=== PATIENT | male | born 1955 | race Caucasian/White ===

== ENCOUNTER 2023-07-03 06:19 | Day surgery (SDC) | payer OTHER, SELFPAY ==
[2023-06-27 08:13] VITALS: BMI 28.6
[2023-06-27 09:01] LABS: Hematocrit 40.5 % (39.0-52.0); Hemoglobin 13.2 g/dL (13.0-18.0); Mean Corp Hgb Conc. 32.6 g/dL (33.0-37.0); Mean Corpuscular Hgb 28.8 pg (27.0-31.0); Mean Corpuscular Volume 88.4 fL (80.0-94.0); Mean Platelet Volume 9.9 fL (7.4-10.4); Platelet Count 242 10^3/uL (130-400); Red Blood Cell Count 4.58 10^6/uL (4.70-6.10); White Blood Cell Count 5.6 10^3/uL (4.8-10.8)
[2023-06-27 09:10] LABS: INR 0.96; PT 12.5 Sec (11.4-14.6)
[2023-06-27 09:11] LABS: APTT 25.3 Sec (23.4-35.0)
[2023-06-27 09:16] LABS: Blood Urea Nitrogen 16 mg/dl (9-20); Calcium 9.9 mg/dl (8.4-10.2); Carbon Dioxide 28 mmol/L (22-30); Chloride 103 mmol/L (98-107); Estimated Creatinine Clearance 100 ml/min; Glucose 104 mg/dl (70-99); Potassium 4.4 mmol/L (3.5-5.1); Sodium 140 mmol/L (135-145); eGFR > 60.00
[2023-07-03] VITALS (7 sets, daily range): BP systolic 113–149; BP diastolic 73–100; BMI 28.6
[2023-07-03 11:23] LABS: Glucose - Point of Care 105 mg/dl (70-99)
[2023-07-03] MEDS: NORMOSOL-R 1000 IV (11:45)
== END 2023-07-03 13:58 | disposition home or self-care (01) ==
LOC: SDS 06:19
PROVIDERS: ATTENDING PHYSICIAN Surgery; FAMILY PHYSICIAN Family Medicine
DX: C61 Malignant neoplasm of prostate (principal)
CPT/HCPCS: 55700; 36415; 76998; 80048; 82962; 85027; 85610; 85730; 88305; 88344; 93005

== ENCOUNTER 2023-07-03 15:32 | Emergency (ER) | payer OTHER, SELFPAY ==
[2023-07-03 15:34] VITALS: BP 111/82
[2023-07-03 16:08] LABS: % Basophils 0.4 % (0-2); % Eosinophils 1.7 % (0-6); % Immature Granulocytes 0.3 % (0-0.5); % Lymphocytes 11.4 % (20.5-51.1); % Monocytes 4.5 % (1.7-9.3); % Neutrophils 81.7 % (42.2-75.2); Absolute Basophils 0.1 10^3/uL (0-0.2); Absolute Eosinophils 0.2 10^3/uL (0-0.7); Absolute Lymphocytes 1.4 10^3/uL (1.2-3.4); Absolute Monocytes 0.6 10^3/uL (0.1-0.6); Absolute Neutrophils 10.1 10^3/uL (1.4-6.5); Hematocrit 39.5 % (39.0-52.0); Hemoglobin 12.7 g/dL (13.0-18.0); Mean Corp Hgb Conc. 32.2 g/dL (33.0-37.0); Mean Corpuscular Volume 90.2 fL (80.0-94.0); Mean Platelet Volume 9.6 fL (7.4-10.4); Nucleated Red Blood Cells % 0 % (-); Platelet Count 223 10^3/uL (130-400); Red Blood Cell Count 4.38 10^6/uL (4.70-6.10); Red Cell Dist. Width 14.9 % (11.5-14.5); White Blood Cell Count 12.3 10^3/uL (4.8-10.8)
[2023-07-03 16:21] LABS: ALT (SGPT) 16 U/L (0-50); AST (SGOT) 24 U/L (17-59); Albumin 4.3 g/dl (3.5-5.0); Alkaline Phosphatase 73 U/L (38-126); Blood Urea Nitrogen 13 mg/dl (9-20); Calcium 9.1 mg/dl (8.4-10.2); Carbon Dioxide 26 mmol/L (22-30); Chloride 105 mmol/L (98-107); Glucose 153 mg/dl (70-99); Potassium 4.2 mmol/L (3.5-5.1); Sodium 135 mmol/L (135-145); Total Bilirubin 0.5 mg/dl (0.2-1.3); eGFR > 60.00
[2023-07-03 16:32] LABS: Troponin I < 0.012 ng/ml
--- NOTE | 2023-07-03 16:59 | ED.GENMED ---
History of Present Illness
<Nazia Pavon PA-C - Last Filed: 07/03/23 18:36>
General
Chief Complaint: Fall
Source: patient
Exam Limitations: none
Time Seen by Provider: 07/03/23 16:29
Nursing documentation reviewed up to this point in time: agreed with
Travel History
Have you had any contact with someone who has COVID-19?: No
Do you have any symptoms of coronavirus? Fever > 100 degrees, chills, cough, shortness of breath, sore throat, loss of taste or smell, muscle aches, or headache?: No
History of Present Illness
History of Present Illness:
Patient is a 67-year-old male with history hypertension, hyperlipidemia, diabetes, TIA status post prostate biopsy earlier today presenting for evaluation of syncopal episode and head injury. Patient had biopsy of prostate earlier this morning by
Dr. Worthington. He reports a light anesthesia during the procedure. It was completed without complications and he returned home around 2 PM. He was relaxing on the couch around 3 PM when he started to feel slightly dizzy. He then stood up became
increasingly more lightheaded, lost consciousness and struck the back of his head on a corner of the wall. He is unsure exactly how long he was unconscious for, although he only believes was for a few seconds. His son did come up from the basement
immediately after his fall.
He came to emergency department for evaluation of dizziness and head injury. While in the waiting room and sitting in a wheelchair patient reports that he became very dizzy again but did not lose consciousness. He denies any associated chest pain,
shortness of breath, nausea, vomiting, visual changes prior during dizziness episodes. He denies any neck pain, back pain, confusion. He does report a small amount of blood in urine following prostate biopsy. He denies any fever, chills, dysuria.
He denies sustaining any other injuries in the fall.
Patient does take Plavix for prior TIA which she was instructed to stop from today through Monday following biopsy.
Past History
<Nazia Pavon PA-C - Last Filed: 07/03/23 18:36>
Past History
ED Past Medical History: HTN, Hypercholesterolemia and Other (Previous mini stroke)
ED Past Surgical History: Orthopedic and Other
Social History
Tobacco: Non-smoker
Alcohol: Occasional
Drug: None
Personal:
Living: with family
Employment: Employed (Teacher)
Family History
Family History: Diabetes; Negative CAD
Phy Exam
<Nazia Pavon PA-C - Last Filed: 07/03/23 18:36>
Physical Exam
Physical Exam:
General: Somewhat pale appearing, nontoxic appearing
Vitals: Vital signs stable, afebrile
HEENT: Hematoma on left posterior scalp without any laceration or obvious bony deformity; pupils equal round reactive to light bilaterally, extraocular muscles intact; protecting airway
Neck: appears supple, no cervical spine or midline spinal tenderness
CV: Regular rate and rhythm, heart sounds normal, no evidence of cyanosis
Resp: No evidence of respiratory distress, lungs clear bilaterally
Abd: Soft, nontender in all 4 quadrants non-distended
Extremities: No deformities, no evidence of cyanosis or edema; DP and radial pulses palpable and equal bilaterally
Neuro: alert and oriented x 3; speech normal; no focal motor deficits; strength 5 out of 5 in upper and lower extremities: Sensation fully intact; cranial nerves II through XII intact; normal finger to nose
Psych: Normal affect
Skin: Intact, no rashes
Course
<MATY Mcleod Last Filed: 07/03/23 18:36>
Orders/Labs/Results
Orders:
Orders
07/03/23 15:39
Electrocardiogram (*1) Urgent
Reason for Study: Syncope
CT Head W/o Iv Contrast Urgent
Comment:
Reason For Exam: fall , posterior head strike.
07/03/23 15:40
EKG- Treatment ONCE
07/03/23 15:51
Complete Blood Count/With Diff Urgent
Comprehensive Metabolic Panel Urgent
Troponin I Urgent
07/03/23 17:17
Orthostatic VS- Treatment ONCE
0.9% Sodium Chloride 1000 ml [Nss] 1,000 ml IV BOLUS
Acetaminophen [Tylenol] 650 mg PO NOW STA
Abnormal Lab Results
07/03/23
15:51
WBC 12.3 H 10^3/uL
(4.8-10.8)
RBC 4.38 L 10^6/uL
(4.70-6.10)
Hgb 12.7 L g/dL
(13.0-18.0)
MCHC 32.2 L g/dL
(33.0-37.0)
RDW 14.9 H %
(11.5-14.5)
Absolute Neuts (auto) 10.1 H 10^3/uL
(1.4-6.5)
Neutrophils % 81.7 H %
(42.2-75.2)
Lymphocytes % 11.4 L %
(20.5-51.1)
Glucose 153 H mg/dl
(70-99)
07/03/23 15:51
07/03/23 15:51
Vital Signs
Initial and Last Documented VS:
Initial Vital Signs
Temp Pulse Resp BP Pulse Ox
97.7 F 80 18 111/82 98
07/03/23 15:34 07/03/23 15:34 07/03/23 15:34 07/03/23 15:34 07/03/23 15:34
Last Documented Vital Signs
Temp Pulse Resp BP Pulse Ox
97.7 F 80 18 111/82 98
07/03/23 15:34 07/03/23 15:34 07/03/23 15:34 07/03/23 15:34 07/03/23 15:34
<Yolanda Amos MD - Last Filed: 07/03/23 18:29>
Orders/Labs/Results
Orders:
Orders
07/03/23 15:39
Electrocardiogram (*1) Urgent
Reason for Study: Syncope
CT Head W/o Iv Contrast Urgent
Comment:
Reason For Exam: fall , posterior head strike.
07/03/23 15:40
EKG- Treatment ONCE
07/03/23 15:51
Complete Blood Count/With Diff Urgent
Comprehensive Metabolic Panel Urgent
Troponin I Urgent
07/03/23 17:17
Orthostatic VS- Treatment ONCE
0.9% Sodium Chloride 1000 ml [Nss] 1,000 ml IV BOLUS
Acetaminophen [Tylenol] 650 mg PO NOW STA
Abnormal Lab Results
07/03/23
15:51
WBC 12.3 H 10^3/uL
(4.8-10.8)
RBC 4.38 L 10^6/uL
(4.70-6.10)
Hgb 12.7 L g/dL
(13.0-18.0)
MCHC 32.2 L g/dL
(33.0-37.0)
RDW 14.9 H %
(11.5-14.5)
Absolute Neuts (auto) 10.1 H 10^3/uL
(1.4-6.5)
Neutrophils % 81.7 H %
(42.2-75.2)
Lymphocytes % 11.4 L %
(20.5-51.1)
Glucose 153 H mg/dl
(70-99)
07/03/23 15:51
07/03/23 15:51
Vital Signs
Initial and Last Documented VS:
Initial Vital Signs
Temp Pulse Resp BP Pulse Ox
97.7 F 80 18 111/82 98
07/03/23 15:34 07/03/23 15:34 07/03/23 15:34 07/03/23 15:34 07/03/23 15:34
Last Documented Vital Signs
Temp Pulse Resp BP Pulse Ox
97.7 F 80 18 111/82 98
07/03/23 15:34 07/03/23 15:34 07/03/23 15:34 07/03/23 15:34 07/03/23 15:34
<Nazia Pavon PA-C - Last Filed: 07/03/23 18:36>
MDM/Problems Addressed
Differential Diagnosis Includes:
Syncopal episode, dehydration, anemia, electrolyte imbalance, urosepsis, cardiac arrhythmia, seizure, seriously doubt ACS or PE
MDM/Problems Addressed:
Patient is 67-year-old male with history as documented presenting for evaluation of what appears to be syncopal episode earlier today and associated head trauma. He did undergo prostate biopsy earlier today. Patient's vital signs are stable on
arrival, he is afebrile. He is not toxic appearing. Physical exam as document above. He is in no apparent distress on initial evaluation. Neurologic exam without any focal neurodeficits. Very low suspicion for central neurologic process He does
have a hematoma on his left posterior scalp without any obvious bony deformity. Labs obtained in triage show a mild leukocytosis of 12.3�which I suspect is reactive from his procedure earlier today. Otherwise no clinically significant
abnormalities. CMP without any clinically significant abnormalities. Troponin is negative. EKG shows normal sinus rhythm without any signs of ischemia. Will check head CT due to head trauma. Will check orthostatic vital signs, IV fluids,
Tylenol for pain
Head CT shows no signs of acute intracranial abnormality. Scalp hematoma on left posterior scalp is noted.
Orthostatic vital signs noted. There was some orthostatic hypotension noted. Will rehydrate with IV fluids.
Update 6:22 PM: Reevaluated patient at bedside. IV fluids have just finished running. He states that he feels much better than initial arrival - has remained without any dizziness/lightheadedness. Skin color appears better to me than initial
evaluation. He remains nontoxic appearing. Do not suspect sepsis at this time. Return precautions discussed at length. Patient is stable for discharge with close return precautions, urology/primary care follow-up. Patient comfortable with this
plan. All questions answered.
Chronic conditions affecting care:
N/A
Acute Exacerbation and/or Progression of Chronic Illness:
N/A
<Nazia Pavon PA-C - Last Filed: 07/03/23 18:36>
*Radiology
Radiology exam reviewed: preliminary read by ED provider and radiology read reviewed
*Pulse Oximetry
Patient hypoxic: no
*EKG
Interpreted by ED Provider?: Yes
EKG Intrepretation Date: 07/03/23
Interpretation: normal
Comparison EKG: no changes
Heart Rate: 78
Rate: normal
Rhythm: sinus
[place]: normal axis
Ischemia: no ischemia
*Legislative Aide Interpretation
Rate: Legislative Aide- N/A
*Critical Care Note
Total Time (30-74mins, 75-104mins- exclusive of procedures): Not Applicable
Data Reviewed
Review of Other/Old Records Reveals: Labs
Source: patient and family
ED Attending Note
<Nazia Pavon PA-C - Last Filed: 07/03/23 18:36>
-
Portions of this chart may have been created with voice recognition software.� Occasional wrong word or��sound alike� substitutions may have occurred due to the inherent limitations of voice recognition software.
<Yolanda Amos MD - Last Filed: 07/03/23 18:29>
ED Attending Note
Patient seen and examined by attending physician: Yes
I performed the substantive portion of visit, reviewed & personally made and approve the management plan that is documented in note by myself or RAHUL.: Yes
ED Attending Note:
67-year-old male status post prostate biopsy this morning. When he returned home, he was sitting in a chair, noticed discomfort in the area of biopsy, and then started to feel dizzy described as 'lightheadedness' not associated with a sense of
movement or spinning. He stood up to relieve the pressure in his perineal area and fell. His son who is an RN quickly came to the area, no seizure activity noted, there was rapid return to normal level of consciousness, no postictal state or
tongue biting, no incontinence. Patient denies any preceding or postevent symptoms such as chest pain or pressure, dyspnea, headache, neck pain, numbness, tingling, abdominal pain. His discomfort is manageable. While here in the emergency
department waiting room, sitting, he closed his eyes to rest, and started to feel lightheaded again. describes a short-lived episode where he was not answering questions, lasted less than a minute and then fully resolved. Patient recalls
this, and has been asymptomatic ever since. On exam, patient is mildly dry mucous membranes, overall well-appearing nontoxic. Low clinical suspicion for sepsis/bacteremia. Low clinical suspicion for central CURTAIN [employer]ER process given lack of neurological
findings, history not consistent with vertigo, etc. Suspect element of dehydration and postanesthesia. Will hydrate and reassess.
Discharge Plan
Departure
Patient Disposition: Home (Routine Discharge)
Date of Disposition: 07/03/23
Time of Disposition: 18:24
Patient with high blood pressure during this ER visit?: No
Condition: Good
Covid-19: Not Applicable
Discharge Problem:
Scalp hematoma, Syncope
Instructions: Syncope (Fainting) (DC), Minor Head Injury (DC)
Prescriptions:
No Action
metoprolol succinate 50 MG tablet extended release 24 hr
50 mg PO DAILY
fish oil-dha-epa 1 EACH capsule
1 ea PO DAILY
fenofibrate nanocrystallized 48 MG tablet
48 mg PO DAILY
clopidogrel 75 MG tablet
75 mg PO DAILY Qty: 30 0RF
rosuvastatin [Crestor] 40 MG tablet
40 mg PO DAILY Qty: 30 0RF
Nexium
40 mg PO DAILY
albuterol sulfate [Proventil HFA] 90 MCG/PUFF HFA aerosol inhaler
2 puff inhalation Q4 Qty: 1 0RF
Rx Instructions:
Use 2 puffs every 4 hours for the next 2 days then use 2 puffs every 4 hours as needed
multivitamin Tablet
1 tab PO DAILY
losartan 50 mg Tablet
50 mg PO DAILY
metformin 500 mg Tablet
500 mg PO DAILY
fluticasone propion-salmeterol [Advair Diskus] 250-50 mcg/dose Blister With Device
1 inh INHALATION BID
tamsulosin 0.4 mg Capsule
0.4 mg PO DAILY
buspirone 15 mg Tablet
15 mg PO DAILY
escitalopram oxalate [Lexapro] 20 mg Tablet
20 mg PO DAILY
Referrals:
Carroll Worthington MD [Active] - As needed
NONE,* [Active] -
Activity Restrictions/Additional Instructions:
- Return to the emergency department with any high fevers, severe headache, intractable nausea/vomiting, persistent lightheadedness/dizziness, repeat episodes of fainting, chest pain, shortness of breath, persistent blood in urine or pain with
urination, severe back pain, worsening current symptoms, or any other concerns
-You can take Tylenol as needed for discomfort. You can apply ice to back of head
-Is important to stay well-hydrated.
-Follow-up with your primary care and/or urology as needed for further evaluation/management
Interventions
Interventions:
*Risk Screen - Suicide Last Done: 07/03/23 15:34
*General Assessment Last Done: 07/03/23 15:34
*Neglect/Abuse Screening Last Done: 07/03/23 15:34
ED-Musculoskeletal Assessment Last Done: 07/03/23 16:35
ED- Neurological Assessment Last Done: 07/03/23 16:35
ED-Skin Assessment Last Done: 07/03/23 16:35
Discharge Date and Time
Print Language: BENGALI
[2023-07-03] MEDS: NSS 1000 IV (17:26)
[2023-07-03 17:36] VITALS: BP 100/56; BP 101/61; BP 121/53; PULSE 68; PULSE 72; PULSE 75
[2023-07-03] MEDS: TYLENOL 650 MG PO (17:52)
== END 2023-07-03 18:54 | disposition home or self-care (01) ==
LOC: EMR 15:32
PROVIDERS: Emergency Medicine; EMERGENCY PHYSICIAN Emergency Medicine; FAMILY PHYSICIAN Family Medicine
DX: R55 Syncope and collapse (principal); S00.03XA Contusion of scalp, initial encounter; W19.XXXA Unspecified fall, initial encounter; E78.5 Hyperlipidemia, unspecified
CPT/HCPCS: 99285; 96360; 70450; 80053; 84484; 85025; 93005

== ENCOUNTER → 2023-10-03 10:52 | Outpatient (REF) | payer OTHER, SELFPAY | LOC: MRI 3T 10:52 | PROVIDERS: ATTENDING PHYSICIAN Surgery; FAMILY PHYSICIAN Family Medicine | DX: C61 Malignant neoplasm of prostate (principal) | CPT/HCPCS: 36415; 72197; 84153; A9575 ==

== ENCOUNTER → 2024-04-11 10:51 | Outpatient (REF) | payer OTHER, SELFPAY | LOC: REG 10:51 | PROVIDERS: ATTENDING PHYSICIAN Surgery; FAMILY PHYSICIAN Family Medicine | DX: C61 Malignant neoplasm of prostate (principal) | CPT/HCPCS: 36415; 84153 ==

== ENCOUNTER → 2024-12-18 10:27 | Outpatient (REF) | payer OTHER, SELFPAY ==
[2024-12-18 13:42] LABS: PSA, Total - Diagnostic 6.33 ng/ml (0.0-4.0)
== END ==
LOC: MRI 3T 10:27
PROVIDERS: ATTENDING PHYSICIAN Surgery; FAMILY PHYSICIAN Family Medicine
DX: C61 Malignant neoplasm of prostate (principal)
CPT/HCPCS: 36415; 72197; 84153; A9575